=== PATIENT | female | born 1990 | race Caucasian/White ===

== ENCOUNTER 2021-08-07 08:51 | Outpatient (CLI) | payer BC ==
[~2021-08-07] VITALS: Ht 157.5 cm; Wt 77.2 kg
[2021-08-07] VITALS (16 sets, daily range): BP systolic 110–141; BP diastolic 59–82; PULSE 66–89; TEMP 98.2–98.9
[~2021-08-07 08:51] MED LIST: NO HOME MEDICATIONS
--- NOTE | 2021-08-07 08:55 | NUR ---
PT AMBULATORY TO UNIT C/O VAGINAL BLEEDING SINCE THIS AM. REPORTS BLEEDING IS BRIGHT RED AT "STRETCHY". NOTED BRIGHT RED/MUCOUS APPEARING BLOOD IN STOOL WITH VOID. ASSISTED INTO BED AND PLACED ON EFM/TOCO. CATEGORY 1 STRIP WITH ACCELERATIONS AND NO CONTRACTIONS NOTED AT THIS TIME. PT DENIES CONTRACTIONS, LEAKING OF FLUID/WATER BREAKING, AND REPORTS POSITIVE MOVEMENT. TO ROUND ON PT SHORTLY AND ASSESS/EVALUATE POC. PT DENIES FURTHER QUESTIONS OR CONCERNS AT THIS TIME.
[2021-08-07] MEDS ORDERED: PRENATAL (09:04)
--- NOTE | 2021-08-07 09:20 | NUR ---
AT BEDSIDE ASSESSING PT. SPEC EXAM AT THIS TIME. VISUALIZED PT'S BLEEDING IN TOILET. EDUCATES PT ON POC. PLANNING ON PT TO STAY IN HOSPITAL AT LEAST OVERNIGHT TO MONITOR BLEEDING. CATEGORY 1 STRIP AT THIS TIME WITH NO CONTRACTIONS PER EFM/TOCO. PT REPORTS POSITIVE MOVEMENT, DENIES LEAKING OF FLUID/WATER BREAKING, AND ALSO DENIES CONTRACTIONS. PT REMAINS IN ROOM WITH CALL LIGHT WITHIN REACH UPON EXITING. DENIES FURTHER QUESTIONS OR CONCERNS AT THIS TIME.
[2021-08-07 10:06] LABS: HEMATOCRIT 37.4 % (37.0-47.0); HEMOGLOBIN 12.9 g/dl (12.5-16.0); MEAN CELL VOLUME 87 fl (80.0-100.0); MEAN CORPUSCULAR HEMOGLOBIN 30 pg (27.0-31.0); MEAN CORPUSCULAR HGB CONC 35 g/dl (33.0-37.0); MEAN PLATELET VOLUME 10.9 fl (7.4-10.4); PLATELET COUNT 207 K/mm3 (130-400); RED BLOOD COUNT 4.31 M/mm3 (4.10-5.30); REDCELL DISTRIBUTION WIDTH-CV 12.3 % (11.5-14.5)
--- NOTE | 2021-08-07 16:49 | NUR ---
1649- EFM and TOCO off. Pt updated that plan is to discharge home. Needs to return tomorrow at 0915 for NST and Betamethasone injection. Bleeding precautions provided. Questions answered. Pt encouraged to change into street clothes and ambulate around room until RN returns with paperwork, understanding verbalized. 1710- RN at bedside. Pt asks if she should void before discharge, this RN recommends. Pt returns from bathroom and states she had a small amount of bleeding noted on toilet paper. This RN visualizes paper in toilet, small amount of pink, moucousy discharge. No bright red bleeding noted.
--- NOTE | 2021-08-07 17:20 | NUR ---
1720- Pt updated on plan of care, Pt needs to stay for observation. Can remain off monitor for now. Pt and deny questions at this time.
--- NOTE | 2021-08-07 19:55 | NUR ---
Pt called out stating she was having more bleeding after ambulating in hallway. [place] paper noted to have significant amount of rnee red blood with a few small clots noted as well. No blood noted to urine. Pt back to bed where EFM and TOCO reapplied. Pt denies cramping/contractions at this time. States her back pain has gone away with ambulation. 2024: No additional blood noted to pad. called and updated. New orders received. See physican notification. Pt updated on new plan of care and questions answered. 2234: FHR strip reactive. Pt up to bathroom to assess bleeding. Small spot of dark red blood noted to pad. No additional blood noted when voiding or noted to toliet paper. Pt off monitors and verbalized understanding of staying in bed to rest. Call light within reach.
[2021-08-08] VITALS (7 sets, daily range): BP systolic 95–125; BP diastolic 50–77; PULSE 60–97; TEMP 98.4–98.9
[2021-08-08 07:58] LABS: HEMOGLOBIN 11.4 g/dl (12.5-16.0); MEAN CELL VOLUME 87 fl (80.0-100.0); MEAN CORPUSCULAR HEMOGLOBIN 30 pg (27.0-31.0); MEAN CORPUSCULAR HGB CONC 35 g/dl (33.0-37.0); MEAN PLATELET VOLUME 10.7 fl (7.4-10.4); PLATELET COUNT 197 K/mm3 (130-400); RED BLOOD COUNT 3.78 M/mm3 (4.10-5.30); REDCELL DISTRIBUTION WIDTH-CV 12.2 % (11.5-14.5)
[2021-08-08 08:03] LABS: HEMATOCRIT 32.9 % (37.0-47.0)
[2021-08-08 08:19] LABS: BAND 16 % (0-10); LYMPHOCYTE 6 % (20.0-51.0); METAMYELOCYTE 1 % (0-0); NEUTROPHILS 76 % (42.0-75.2); PLATELET ESTIMATE NORMAL (NORMAL)
--- NOTE | 2021-08-08 09:50 | NUR ---
DC PAPERWORK REVIEWED AND UNDERSTOOD INCLUDING FOLLOW UP APPOINTMENTS AT [facility] AND [facility]. PT IN STABLE CONDITION. VITAL SIGNS STABLE. MINIMAL BROWN SPOTTING ON TOILET PAPER WITH WIPING. CATEGORY 1 STRIP UPON REMOVING EFM. NO CONTRACTIONS NOTED THROUGHOUT THIS SHIFT. PT DENIES FURTHER QUESTIONS OR CONCERNS. AMBULATORY FROM UNIT WITH FOB.
== END 2021-08-08 09:50 | disposition home or self-care (01) ==
LOC: LDRO 08:51 → LDR 09:00 → LDRO 08-08 09:50
PROVIDERS: Obstetrics & Gynecology; Student in an Organized Health Care Education/Training Program
DX: O46.93 Antepartum hemorrhage, unspecified, third trimester (principal); Z3A.29 29 weeks gestation of pregnancy
CPT/HCPCS: OP; J0702

== ENCOUNTER 2021-09-18 08:13 | Inpatient (IN) | payer BC ==
[~2021-09-18] VITALS: Ht 157.5 cm; Wt 82.7 kg
[2021-09-18] VITALS (19 sets, daily range): BP systolic 107–133; BP diastolic 57–76; PULSE 67–96; TEMP 97.8–98.1
--- NOTE | 2021-09-18 08:10 | NUR ---
Pt arrived on unit ambulatory with complaints of bleeding. Pt denies any contractions or leaking of fluid and reports normal movement. Pt reports she was getting dressed this morning and had a "gush of blood run down the leg". EFM and toco monitors started. Vital signs WNL. No active bleeding noted on external exam by this RN. Yuliana-pad in place.
[~2021-09-18 08:13] MED LIST changes: +PRENATAL
[2021-09-18] MEDS ORDERED: COLACE 100100 MG/CAP PO (08:49)
--- NOTE | 2021-09-18 09:09 | NUR ---
Dr. Guzman at the bedside. Speculum exam done per Dr. Guzman with fluid noted on exam. Amnio-trace positive. Pt reports bleeding/SROM 0735. Plan of care for discussed with pt and at the bedside.
[2021-09-18 09:31] LABS: HEMOGLOBIN 12.5 g/dl (12.5-16.0); MEAN CELL VOLUME 86 fl (80.0-100.0); MEAN CORPUSCULAR HEMOGLOBIN 29 pg (27.0-31.0); MEAN CORPUSCULAR HGB CONC 34 g/dl (33.0-37.0); MEAN PLATELET VOLUME 11.1 fl (7.4-10.4); PLATELET COUNT 180 K/mm3 (130-400); RED BLOOD COUNT 4.28 M/mm3 (4.10-5.30)
[2021-09-18 10:06] LABS: BAND 6 % (0-10); LYMPHOCYTE 9 % (20.0-51.0); MYELOCYTE 1 % (0-0); NEUTROPHILS 81 % (42.0-75.2)
[2021-09-18 10:07] LABS: PLATELET ESTIMATE NORMAL (NORMAL)
[2021-09-18] MEDS ORDERED: PERCOCET 325 MG1 TA2 PO (20:26)
[2021-09-18] MEDS ORDERED: IBU800 M1 PO (20:26)
[2021-09-19 00:30] VITALS: BP 110/59; PULSE 66; TEMP 98.3
[2021-09-19 07:51] VITALS: BP 120/68; PULSE 106; TEMP 98.5
[2021-09-19 16:24] VITALS: BP 115/54; PULSE 73; TEMP 97.6
[2021-09-19 20:30] VITALS: BP 137/79; PULSE 72; TEMP 98.5
[2021-09-20 09:15] VITALS: BP 107/71; PULSE 72; TEMP 98.3
--- NOTE | 2021-09-20 13:12 | NUR ---
Percocet 5/325 mg one given as ordered and per request.
--- NOTE | 2021-09-20 14:30 | NUR ---
Rests in bed, alert. Discharge instructions given, verbalizes understanding.
== END 2021-09-20 14:55 | disposition home or self-care (01) | DRG 787 ==
LOC: LDRO 08:13 → LDR 08:51 → LDRO 09:30 → OB 09:31 → LDR 09:31 → OB 11:40
PROVIDERS: ADMIT Student in an Organized Health Care Education/Training Program
PROC: 10D00Z1 Extraction of Products of Conception, Low, Open Approach (ICD-10-PCS; principal; 2021-09-18)
DX: O42.913 Preterm premature rupture of membranes, unspecified as to length of time between rupture and onset of labor, third trimester (principal); O44.43 Low lying placenta NOS or without hemorrhage, third trimester; O32.1XX0 Maternal care for breech presentation, not applicable or unspecified; Z3A.35 35 weeks gestation of pregnancy; Z37.0 Single live birth
CPT/HCPCS: J0171; J0690; J1885; J2175; J2370; J2405; J2540; J2590; J7120

== ENCOUNTER 2024-07-21 05:36 | Inpatient (IN) | payer BC ==
[2024-07-21] VITALS (21 sets, daily range): BP systolic 107–136; BP diastolic 57–94; PULSE 12–100; TEMP 97.6–98.8
[~2024-07-21] VITALS: Ht 157.5 cm; Wt 89.1 kg
[~2024-07-21 05:36] MED LIST changes: +COLACE 100100 MG/CAP PO; +IBU800 M1 PO; +PERCOCET 325 MG1 TA2 PO
--- NOTE | 2024-07-21 05:40 | NUR ---
Ambulatory to unit for scheduled C/S, accompanied by spouse. Oriented to room, plan of care.
[2024-07-21] MEDS ORDERED: LR 1,000 ML IV SCH (06:15)
[2024-07-21 07:00] LABS: HEMOGLOBIN 11.1 g/dl (12.5-16.0); MEAN CELL VOLUME 89 fl (80.0-100.0); MEAN CORPUSCULAR HEMOGLOBIN 29 pg (27-31); MEAN CORPUSCULAR HGB CONC 33 g/dl (33.0-37.0); PLATELET COUNT 143 K/mm3 (130-400); RED BLOOD COUNT 3.77 M/mm3 (4.10-5.30); REDCELL DISTRIBUTION WIDTH-CV 13.4 % (11.5-14.5)
[2024-07-21] MEDS ORDERED: Ondansetron 4 MG/2 ML VIAL ONE (07:05)
[2024-07-21] MEDS ORDERED: NS 20 ML IV ONE (07:05)
[2024-07-21] MEDS ORDERED: Phenylephrine 10 MG/ML VIAL ONE (07:05)
[2024-07-21] MEDS ORDERED: Oxytocin 10 UNITS/ML VIAL ONE ×2 (07:05→08:11)
[2024-07-21 07:19] LABS: HEMATOCRIT 33.6 % (37.0-47.0)
[2024-07-21] MEDS ORDERED: Meperidine 50 MG/ML 1 ML VIAL ONE (07:41)
[2024-07-21] MEDS ORDERED: EPINEPHrine 1 MG/1 ML Ampule ONE (07:46)
[2024-07-21 07:49] LABS: EOSINOPHIL 2 % (0-4); LYMPHOCYTE 11 % (20.0-51.0); METAMYELOCYTE 1 % (0-0); NEUTROPHILS 82 % (42.0-75.2); PLATELET ESTIMATE NORMAL (NORMAL)
[2024-07-21] MEDS ORDERED: LR 1,000 ML IV ONE ×2 (07:58→08:11)
[2024-07-21] MEDS ORDERED: Ketorolac 60 MG/2 ML VIAL IM ONE (07:58)
[2024-07-21] MEDS ORDERED: Loratadine 10 MG TAB PO PRN (08:45)
[2024-07-21] MEDS ORDERED: Measles/Mumps/Rubella Virus Vaccine Live w Diluent 0.5 ML VIAL SQ SCH (08:45)
[2024-07-21] MEDS ORDERED: Naloxone 0.4 MG/ML VIAL IV PRN (08:45)
[2024-07-21] MEDS ORDERED: Ondansetron 4 MG/2 ML VIAL IV PRN (08:45)
[2024-07-21] MEDS ORDERED: LR 1,000 ML IV PRN (08:45)
[2024-07-21] MEDS ORDERED: oxyCODONE/Acetaminophen 5-325 MG TAB PO PRN (08:45)
[2024-07-21] MEDS ORDERED: Magnes Hydrox (MOM) 80 MG/ML 30 ML CUP PO PRN (08:45)
--- NOTE | 2024-07-21 14:30 | NUR ---
THIS RN TO BEDSIDE TO ASSIST PATIENT IN AMBULATION. PATIENT IS ASSISTED TO DANGLE WITHOUT COMPLAINT OF DIZZINESS, PATIENT IS THEN ASSISTED TO STAND AND FEELS STEADY ON HER FEET. PATIENT AMBUALTES TO THE RESTROOM WITH THIS RN ASSISTING WITH BALL CATHETER. PATIENT SITS ON TOILET, PERICARE PERFORMED, PATIENT ATTEMPTS TO VOID ONCE BALL IS REMOVED. PATIENT ASSISTED INTO A CLEAN GOWN AND IS ABLE TO AMBULATE INDEPENDENTLY TO WASH HER HANDSS. PATIENT ASSISTED BACK TO BED TO ATTMEPT .
[2024-07-21] MEDS ORDERED: Ibuprofen 800 MG TAB PO SCH (14:34)
[2024-07-21] MEDS ORDERED: Sennosides/Docusate 8.6-50 MG TAB PO SCH (17:00)
[2024-07-21] MEDS ORDERED: traZODone 50 MG TAB PO PRN (21:00)
[2024-07-22 03:30] VITALS: BP 126/70; PULSE 74; TEMP 98
[2024-07-22 10:30] VITALS: BP 117/68; PULSE 85; TEMP 98
[2024-07-22 16:30] VITALS: BP 118/42; PULSE 68; TEMP 97.9
[2024-07-22 20:30] VITALS: BP 117/68; PULSE 70; TEMP 98.2
[2024-07-23 09:00] VITALS: BP 116/85; PULSE 72; TEMP 97.9
== END 2024-07-23 12:55 | disposition home or self-care (01) | DRG 788 ==
LOC: OB 05:36
PROVIDERS: ADMIT Student in an Organized Health Care Education/Training Program
PROC: 10D00Z1 Extraction of Products of Conception, Low, Open Approach (ICD-10-PCS; principal; 2024-07-21)
DX: O34.211 Maternal care for low transverse scar from previous cesarean delivery (principal); Z3A.39 39 weeks gestation of pregnancy; Z37.0 Single live birth
CPT/HCPCS: A9284; J0171; J0665; J0690; J1885; J2175; J2371; J2405; J2590; J7120